=== PATIENT | female | born 1995 | race Caucasian/White ===

== ENCOUNTER 2023-04-22 11:00 | Emergency (ER) | payer OTHER, SELFPAY ==
[2023-04-22 11:04] VITALS: BP 132/78; PULSE 98; RESP 18; TEMP 36.8; O2SAT 99; BMI 21.6
--- NOTE | 2023-04-22 11:25 | ED_ITS ---
HPI - General Adult General Chief complaint: Urogenital-Female Stated complaint: ABD PAIN Time Seen by Provider: 04/22/23 11:24 Source: patient Mode of arrival: walk-in History of Present Illness HPI narrative: Patient is a 28-year-old female who is presenting to the Emergency Room with chief complaint of over 7 days of urinary frequency, urgency and burning. Patient also has been taking AZO in the past week. Patient was seen at urgent care in [place] earlier today, had a urine sample done that showed evidence of urinary tract infection because of bilateral lower back pain, was told to go to the Emergency Room for evaluation. Mother is at bedside. Patient says that she gets frequent urinary tract infections for unknown reason. Patient does urinate after intercourse. Patient's never seen a specialist or urologist on why she get s frequent urinary tract infection. Patient has had pyelonephritis in the past. Has been several years since she last had zeeshan blayne is. Patient has nausea with one episode of vomiting. Patient does feel like she has fever and chills. The recent sick contacts, no recent traveling. Patient states she just finished her menses 2 weeks ago, she is not concerned about . She has no vaginal bleeding, discharge or odor. Not worried about STD. No diarrhea or constipation. 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 No other acute complaints. Mother was at bedside for HPI and physical exam. . All systems are negative except as noted/marked. All systems reviewed and otherwise negative. . Nurses note and vital signs reviewed and patient is not hypoxic. General: The patient appears well and in no apparent distress. Patient is resting comfortably on cart. Patient is not toxic, lethargic, or listless Skin: Warm, dry, no pallor noted. There is no rash noted. No petechiae, purpura. Head: Normocephalic, atraumatic Eye: Normal conjunctiva, no drainage, EOMI. PERRL Ears, Nose, Mouth, and Throat: oral mucosa is moist. Nares patent. Mouth without vesicles. Cardiovascular: Regular Rate and Rhythm, no murmur, gallop, rub Respiratory: Patient is in no distress, no accessory muscle use, lungs are clear to auscultation, no wheezing, rales or rhonchi Back: Otherwise non-tender, Patient has mild to moderate CVA tenderness bilaterally to percussion. No CT LS midline pain. No flank pain bilateral. GI: soft, Mild to moderate suprapubic tenderness to palpation, no right upper or right lower quadrant tenderness to palpation, no masses appreciated. No rebound, guarding, or rigidity noted. No flank pain bilateral, No distention. N o peritoneal signs, no flank pain bilateral, Musculoskeletal: Patient has full range of motion of all of the extremities, no motor, sensory, or focal neurological deficits Neurological: A&O x3, normal speech Psychiatric: Cooperative Related Data Previous Rx's Medication Instructions Recorded ciprofloxacin HCl 500 mg tablet 500 mg PO Q12H 7 days #14 tabs 04/22/23 phenazopyridine 200 mg tablet 200 mg PO TID 2 days #6 tabs 04/22/23 (Pyridium) Allergies Allergy/AdvReac Type Severity Reaction Status Date / Time No Known Drug Allergies Allergy Verified 04/22/23 11:04 Exam Constitutional Vital Signs, click to edit/add: Last Vital Signs Temp 98.3 F 04/22/23 11:04 Pulse 70 04/22/23 14:03 Resp 18 04/22/23 14:03 BP 121/73 04/22/23 14:03 Pulse Ox 98 04/22/23 14:03 O2 Del Method Room Air 04/22/23 14:03 Course Vital Signs Vital signs: Vital Signs Temperature 98.3 F 04/22/23 11:04 Pulse Rate 98 H 04/22/23 11:04 Respiratory Rate 18 04/22/23 11:04 Blood Pressure 132/78 04/22/23 11:04 Pulse Oximetry 99 04/22/23 11:04 Oxygen Delivery Method Room Air 04/22/23 11:04 Temperature 98.3 F 04/22/23 11:04 Pulse Rate 70 04/22/23 14:03 Respiratory Rate 18 04/22/23 14:03 Blood Pressure 121/73 04/22/23 14:03 Pulse Oximetry 98 04/22/23 14:03 Oxygen Delivery Method Room Air 04/22/23 14:03 Medical Decision Making MDM Narrative Medical decision making narrative: Patient was given 1 L of IV fluid. Patient was given 1 g Rocephin. Patient has leukoesterase noted in her urine, urine macro and urine culture still pending. Patient has sensation of fever/chills, bilateral lower back pain, she was diagnosed with urinary tract infection to urgent care prior to arriving to the Emergency Room. Patient has nausea and vomiting. Patient will follow-up with PCP and patient understands importance of following up with urology secondary to multiple urinary tract infection in the past. Patient feels much better after IV medication and IV fluids given in the Emergency Room. Patient will start taking Cipro today, 7 day course. Patient is given prescription for protein. No questions at discharge. Medical Records Medical records reviewed: Yes I reviewed the patient's medical records Medical records narrative: CT of the abdomen and pelvis show no acute findings, a copy of the report was given to the patient and discussed at bedside with patient and mother. Lab Data Lab results reviewed: Yes I reviewed the patient's lab results Labs: Lab Results 04/22/23 04/22/23 Range/Units 11:10 11:41 WBC 7.7 (4.0-11.0) 10^3/uL RBC 4.39 (4.20-5.40) 10^6/uL Hgb 13.0 (12.0-16.0) g/dL Hct 39.5 (36.0-48.0) % MCV 90.0 (81.0-99.0) fL MCH 29.6 (26.7-34.0) pg MCHC 32.9 (29.9-35.2) g/dL RDW 12.8 (11.0-15.0) % Plt Count 228 (150-450) 10^3/uL MPV 10.7 (9.5-13.5) fL Neut % (Auto) 69.3 (43.0-75.0) % Lymph % (Auto) 20.2 L (20.5-60.0) % [place] % (Auto) 8.4 (1.7-12.0) % Eos % (Auto) 1.6 (0.9-7.0) % Baso % (Auto) 0.4 (0.2-2.0) % Neut # (Auto) 5.3 (1.4-6.5) 10^3/uL Lymph # (Auto) 1.6 (1.2-3.8) 10^3/uL [place] # (Auto) 0.7 (0.3-0.8) 10^3/uL Eos # (Auto) 0.1 (0.0-0.7) 10^3/uL Baso # (Auto) 0.0 (0.0-0.1) 10^3/uL Abs Immat Gran (auto) 0.01 (0.00-0.03) 10^3/uL Imm/Tot Granulo (auto) 0.1 (0.0-0.5) % Sodium 138 (136-145) mmol/L Potassium 3.9 (3.5-5.1) mmol/L Chloride 102 (98-107) mmol/L Carbon Dioxide 30.1 (21.0-32.0) mmol/L Anion Gap 9.8 BUN 10.0 (7.0-18.0) mg/dL Creatinine 0.58 (0.55-1.02) mg/dL Est GFR ( Amer) >60 (>=60) Est GFR (Non-Af Amer) >60 (>=60) BUN/Creatinine Ratio 17.2 Glucose 76 (74-106) mg/dL Lactate 0.7 (0.4-2.0) mmol/L Calcium 8.8 (8.5-10.1) mg/dL Total Bilirubin 0.5 (0.2-1.0) mg/dL AST 17 (15-37) U/L ALT 21 (14-59) U/L Alkaline Phosphatase 63 (46-116) U/L Total Protein 7.4 (6.4-8.2) g/dL Albumin 3.9 (3.4-5.0) g/dL Globulin 3.5 g/dL Albumin/Globulin Ratio 1.1 Lipase 44.0 L (73.0-393.0) U/L Urine Color Lt. yellow (YELLOW) Urine Clarity Clear (CLEAR) Urine pH 7.5 (5.0-9.0) Ur Specific [place] 1.015 (1.005-1.025) Urine Protein 100 A (NEG/TRACE) mg/dL Urine Glucose (UA) Negative (NEGATIVE) mg/dL Urine Ketones Negative (NEGATIVE) mg/dL Urine Occult Blood Moderate A (NEGATIVE) Urine Nitrite Negative (NEGATIVE) Urine Bilirubin Negative (NEGATIVE) Urine Urobilinogen 0.2 (0.2-1.0) EU/dL Ur Leukocyte Esterase Moderate A (NEGATIVE) Urine micro-, urine culture is still pending Discharge Plan Discharge Chief Complaint: Urogenital-Female Clinical Impression: Urinary tract infection, Cystitis Patient Disposition: Home, Self-Care Time of Disposition Decision: 14:03 Condition: Good Prescriptions / Home Meds: New ciprofloxacin HCl 500 mg tablet 500 mg PO Q12H 7 Days Qty: 14 0RF phenazopyridine [Pyridium] 200 mg tablet 200 mg PO TID 2 Days Qty: 6 0RF Instructions: Urinary Tract Infection in Women (ED) Additional Instructions: Increase fluids, water or cranberry juice daily. Start taking Cipro today. Continue Tylenol Motrin as needed for aches and pains. Use In the help with burning sensation while urinating. Follow up with PCP You need to establish urology for acute and chronic urinary tract infection, Dr. Rahman has been referred. Stand Alone Forms: Portal Instructions Referrals: Florencio Rahman MD [Physician] - 1 week Physician,Non-Staff, [Primary Care Provider] - 1 week
[2023-04-22 11:26] LABS: Bilirubin Urine NEGATIVE (NEGATIVE); Blood Urine MODERATE (NEGATIVE); Clarity Urine CLEAR (CLEAR); Color Urine LT. YELLOW (YELLOW); Glucose Urine UA NEGATIVE (NEGATIVE); Ketones Urine NEGATIVE (NEGATIVE); Leukocyte Esterase Urine MODERATE (NEGATIVE); Nitrite Urine NEGATIVE (NEGATIVE); Protein Urine 100 mg/dL (NEG/TRACE); Specific Gravity Urine 1.015 (1.005-1.025); Urobilinogen Urine 0.2 EU/dL (0.2-1.0); pH Urine 7.5 (5.0-9.0)
[2023-04-22 11:50] LABS: Basophils Percent Auto 0.4 % (0.2-2.0); Eosinophils Absolute Auto 0.1 10^3/uL (0.0-0.7); Eosinophils Percent Auto 1.6 % (0.9-7.0); Hematocrit 39.5 % (36.0-48.0); Immature Granulocytes Abs Auto 0.01 10^3/uL (0.00-0.03); Immature Granulocytes Pct Auto 0.1 % (0.0-0.5); Lymphocytes Absolute Auto 1.6 10^3/uL (1.2-3.8); Lymphocytes Percent Auto 20.2 % (20.5-60.0); Mean Corpuscular HGB Conc 32.9 g/dL (29.9-35.2); Mean Corpuscular Hemoglobin 29.6 pg (26.7-34.0); Mean Platelet Volume 10.7 fL (9.5-13.5); Monocytes Absolute Auto 0.7 10^3/uL (0.3-0.8); Monocytes Percent Auto 8.4 % (1.7-12.0); Neutrophils Absolute Auto 5.3 10^3/uL (1.4-6.5); Neutrophils Percent Auto 69.3 % (43.0-75.0); Platelet Count 228 10^3/uL (150-450); Red Blood Count 4.39 10^6/uL (4.20-5.40); Red Cell Distribution Width 12.8 % (11.0-15.0); White Blood Count 7.7 10^3/uL (4.0-11.0)
[2023-04-22] MEDS: ONDANSETRON PF 4 MG/2 ML VIAL IV (11:51)
[2023-04-22] MEDS: MORPHINE SULFATE 2 MG/ML SYRINGE 4 MG IV (11:51)
[2023-04-22] MEDS: CEFTRIAXONE 1,000 MG in 0.9 % SODIUM CHLORIDE 50 ML 100 MG IV (11:55)
[2023-04-22] MEDS: 0.9 % SODIUM CHLORIDE 1,000 ML 999 ML IV (11:56)
[2023-04-22 12:08] LABS: Alanine Aminotransferase 21 U/L (14-59); Albumin Globulin Ratio 1.1; Albumin Level 3.9 g/dL (3.4-5.0); Alkaline Phosphatase 63 U/L (46-116); Anion Gap 9.8; Aspartate Amino Transferase 17 U/L (15-37); BUN Creatinine Ratio 17.2; Bilirubin Total 0.5 mg/dL (0.2-1.0); Calcium 8.8 mg/dL (8.5-10.1); Carbon Dioxide 30.1 mmol/L (21.0-32.0); Chloride 102 mmol/L (98-107); Estimated GFR (African America >60 (>=60); Estimated GFR (Non-African Ame >60 (>=60); Globulin 3.5 g/dL; Glucose 76 mg/dL (74-106); Potassium 3.9 mmol/L (3.5-5.1); Sodium 138 mmol/L (136-145); Total Protein 7.4 g/dL (6.4-8.2)
[2023-04-22 12:09] LABS: Lactate/Lactic Acid 0.7 mmol/L (0.4-2.0)
--- NOTE | 2023-04-22 12:20 | CT_ITS ---
[address] [address] Patient Name: ERIKA HERNANDEZ MRN: [id number] date: 1995 Sex: F Assigned Patient Location: ER Current Patient Location: .[facility] Accession/Order Number: [id number] Exam Date: 04/22/2023 12:08 Report Date: 04/22/2023 12:38 At the request of: RODRIGO BRENNAN Procedure: CT abdomen pelvis w con EXAMINATION: CT abdomen pelvis w con HISTORY: bilateral back pain, UTI ; bilateral flank pain, hematuria COMPARISON: No relevant comparison available. TECHNIQUE: Axial, Coronal, and Sagittal images were obtained without and/or with IV contrast as indicated by examination type. Dose reduction techniques were achieved by using automated exposure control and/or adjustment of mA and/or kV according to patient size and/or use of iterative reconstruction technique. FINDINGS: LUNG BASES: No visible pulmonary or pleural disease. LIVER: No enlargement, atrophy, suspicious density, or significant focal lesion. BILIARY: No dilatation or calcification. PANCREAS: No lesion, fluid collection, or abnormal duct dilatation. SPLEEN: No enlargement or focal lesion. ADRENALS: No mass or enlargement. KIDNEYS: Mildly thickened enhancing foote of the ureters and renal pelvis bilaterally. No dilation of the calyces, urinary tract stones, or obstruction. No appreciable mass or abnormal enhancement of the renal parenchyma. BOWEL/MESENTERY: No visible mass, obstruction, or bowel wall thickening. Normal appendix. AORTA/VASCULAR: No aneurysm or dissection. RETROPERITONEUM: No mass or adenopathy. LYMPH NODES: No adenopathy. URINARY BLADDER: Mild segmental wall thickening. PELVIC ORGANS: Bilateral ovarian follicles; suspect collapsing right ovarian cyst and small amount of adjacent free fluid. No visible mass. Pelvic organs appropriate for patient age. ABDOMINAL WALL: No mass or hernia. BONES: No bony lesion or fracture. OTHER: Negative. CT/CT abdomen pelvis w con IMPRESSION: 1.No urinary tract calculi, mass, or obstructive uropathy. 2.Findings favor cystitis and likely ascending infection within the ureters. No appreciable involvement of the kidneys to suggest pyelonephritis. 3. Unremarkable bowel. Electronically authenticated by: BILLIE LOPEZ Date: 04/22/2023 12:38
[2023-04-22 14:03] VITALS: BP 121/73; PULSE 70; RESP 18; O2SAT 98
[2023-04-22 14:09] LABS: Urine Microscopic Indicated YES
[2023-04-22 14:19] LABS: Bacteria Urine TRACE #/HPF (NONE SEEN); Mucus Urine MODERATE (NONE SEEN)
[2023-04-22 14:20] LABS: Cast Seen? NONE SEEN #/LPF (NONE SEEN); Crystals Seen? None Seen #/HPF (None Seen); Squamous Epithelial Cell Urine MODERATE #/LPF (NONE/RARE); Urine Culture Indicated ALREADY ORDERED
== END 2023-04-22 14:15 | disposition home or self-care (01) ==
PROVIDERS: Emergency Provider Emergency Medicine
DX: N30.90 Cystitis, unspecified without hematuria (principal); Z87.440 Personal history of urinary (tract) infections
CPT/HCPCS: 36415; 74177; 80053; 81001; 83605; 83690; 85025; 87086; 87150; 87186; 96365; 96375; 99285; Q9967